=== PATIENT | female | born 1945 | race Caucasian/White ===

== ENCOUNTER 2018-06-03 12:44 | Emergency (ER) | payer OTHER ==
[~2018-06-03] VITALS: Ht 157.5 cm; Wt 90.7 kg
[2018-06-03 14:25] LABS: Basophils # (auto) 0 uL; Basophils % (auto) 1.1 % (0.0-2.0); Eosinophils # (auto) 0 uL; Eosinophils % (auto) 1.1 % (0.0-7.0); Hematocrit 44.1 % (36.0-46.0); Hemoglobin 14.6 g/dL (12.2-16.2); Lymphocytes # (auto) 0.8 uL; Lymphocytes % (auto) 18.2 % (10.0-50.0); Mean Corpuscular Hemoglobin 28.2 pg (28.0-32.0); Mean Corpuscular Hgb Conc. 33.1 g/dL (32.0-36.0); Mean Corpuscular Volume 85.3 fL (80.0-100.0); Monocytes # (auto) 0.2 uL; Monocytes % (auto) 5.1 % (0.0-12.0); Neutrophils # (auto) 3.3 uL; Neutrophils % (auto) 74.5 % (37.0-80.0); Nucleated Red Blood Cells % 0.1 %; Platelet Count (auto) 215 10^3/uL (140-450); Red Blood Cells 5.17 10^6/uL (4.0-5.20); Red Cell Distribution Width 13.7 % (11.8-14.3); White Blood Cell 4.5 10^3/uL (4.4-10.8)
[2018-06-03 14:40] LABS: Alanine Aminotransferase 30 U/L (13-56); Albumin 3.9 g/dL (3.4-5.0); Anion Gap 7 (5-15); Aspartate Aminotransferase 20 U/L (15-37); Blood Urea Nitrogen 16 mg/dL (7-18); Calcium 8.9 mg/dL (8.5-10.1); Carbon Dioxide 26 mmol/L (21-32); Chloride 109 mmol/L (98-107); Glucose 110 mg/dL (74-106); Sodium 142 mmol/L (136-145)
[2018-06-03 14:45] LABS: Alkaline Phosphatase 87 U/L (45-117); Bilirubin, Total 0.4 mg/dL (0.2-1.0); GFR African American 91 mL/min; GFR Non-African American 75 mL/min; Total Protein 7.2 g/dL (6.4-8.2)
[2018-06-03 16:24] VITALS: BP 149/78
== END 2018-06-03 16:31 | disposition home or self-care (01) ==
LOC: ER 12:51
DX: R07.89 Other chest pain (principal)
CPT/HCPCS: 36415; 71046; 80053; 83735; 84443; 84484; 85025; 93005